=== PATIENT | female | born 1975 | race Caucasian/White ===

== ENCOUNTER 2024-09-27 17:56 | Emergency (ER) | payer BC ==
[~2024-09-27] VITALS: Ht 152.4 cm; Wt 70.3 kg
[2024-09-27] MEDS ORDERED: ONDANSETRON ODT 4 MG TAB.RAPDIS ONE (20:33)
[2024-09-27] MEDS ORDERED: OXYCODONE/APAP 5-325 MG TABLET ONE ×2 (20:34→20:36)
[2024-09-27] MEDS: OXYCODONE/APAP 5-325 MG TABLET PO ONE (20:40)
[2024-09-27] MEDS: ONDANSETRON ODT 4 MG TAB.RAPDIS SL ONE (20:40)
[2024-09-27] MEDS ORDERED: ONDA4TAB11 PO (20:51)
[2024-09-27] MEDS ORDERED: HYDR-3980 PO (20:51)
[2024-09-27] MEDS ORDERED: PREG75CA76 PO (20:51)
[2024-09-27 21:00] VITALS: BP 118/74; O2SAT 95
[2024-09-28] MEDS ORDERED: PREG75CA76 PO (07:32)
[2024-09-28] MEDS ORDERED: HYDR-3974 PO (07:32)
[2024-09-28] MEDS ORDERED: ONDA4TAB11 PO (07:32)
== END 2024-09-27 21:00 | disposition home or self-care (01) ==
LOC: ER 20:32
DX: G89.29 Other chronic pain (principal); M54.50 Low back pain, unspecified; M79.2 Neuralgia and neuritis, unspecified; Z79.899 Other long term (current) drug therapy; Z85.3 Personal history of malignant neoplasm of breast; Z87.39 Personal history of other diseases of the musculoskeletal system and connective tissue; Z88.8 Allergy status to other drugs, medicaments and biological substances
CPT/HCPCS: A4606; A4663; Q0162